=== PATIENT | male | born 1985 | race African-American/Black ===

== ENCOUNTER 2020-10-16 02:36 | Emergency (ER) | payer SELFPAY ==
[~2020-10-16] VITALS: Ht 177.8 cm; Wt 98.0 kg
[2020-10-16] MEDS ORDERED: MORPHINE SULFATE 4 MG/ML, 1ML ONE (02:39)
[2020-10-16 02:54] LABS: BASOPHILS % (AUTO) 1 % (0-1); EOSINOPHILS % (AUTO) 0 % (1-7); LYMPHOCYTES % (AUTO) 34 % (22-44); MEAN CORPUSCULAR HEMOGLOBIN 31.3 pg (27.5-34.5); MEAN CORPUSCULAR HGB CONC 33.1 g/dL (33.2-36.2); MEAN PLATELET VOLUME 7.7 fL (7.4-10.4); MONOCYTES % (AUTO) 6 % (2-9); NEUTROPHILS % (AUTO) 58 % (42-75); PLATELET COUNT 300 x10^3/uL (130-400); RED BLOOD COUNT 5.67 x10^6/uL (4.38-5.82); RED CELL DISTRIBUTION WIDTH 13.8 % (9.4-14.8)
[2020-10-16] MEDS ORDERED: PLEASE ENTER ALLERGIES MC SCH (03:00)
[2020-10-16] MEDS ORDERED: SODIUM CHLORIDE 0.9% 1,000ML IVBOLUS ONE (03:00)
[2020-10-16] MEDS ORDERED: DIPH,PERTUSS(ACELL),TET VAC/PF 0.5 ML IM-VACC ONE ×2 (03:00→05:16)
[2020-10-16] MEDS ORDERED: MORPHINE SULFATE 4 MG/ML, 1ML IVPush PRN (03:00)
[2020-10-16] MEDS ORDERED: LIDOCAINE-MPF 1%, 5ML INFIL ONE (03:00)
[2020-10-16] MEDS ORDERED: SODIUM CHLORIDE FLUSH 10ML SYR IVF ONE (03:00)
[2020-10-16] MEDS ORDERED: CEFAZOLIN PMX 1GM/50ML 50 ML IVPB ONE (03:00)
[2020-10-16] MEDS ORDERED: ONDANSETRON 2MG/ML, 2ML IVPush ONE (03:00)
[2020-10-16 03:04] LABS: ALBUMIN 4.5 g/dL (3.4-5.0); ANION GAP 15 mmol/L (5-15); CALCIUM 9.1 mg/dL (8.5-10.1); CHLORIDE 108 mmol/L (98-107); CREATININE 1.64 mg/dL (0.7-1.3)
[2020-10-16] MEDS ORDERED: OMNIPAQUE 350 MG/ML, 100ML BOTTLE ONE (03:06)
[2020-10-16] MEDS ORDERED: LIDOCAINE 1%-EPI 1:100K, 20ML ONE (03:26)
[2020-10-16] MEDS ORDERED: NEOSPORIN OINT. PKT 1 PACKET ONE ×2 (03:39→04:37)
[2020-10-16] MEDS ORDERED: HYDROcodone/APAP 5/325 TABLET PO ONE (05:00)
[2020-10-16 05:03] VITALS: BP 130/80
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
[2020-10-16] MEDS ORDERED: HYDROcodone/APAP 5/325 TABLET ONE (05:16)
[2020-10-16] MEDS ORDERED: CEFAZOLIN PMX 1GM/50ML 50 ML ONE (05:16)
== END 2020-10-16 05:44 | disposition home or self-care (01) ==
LOC: ED 03:00
DX: S21.142A Puncture wound with foreign body of left front wall of thorax without penetration into thoracic cavity, initial encounter (principal); S20.212A Contusion of left front wall of thorax, initial encounter; S60.511A Abrasion of right hand, initial encounter; X94.0XXA Assault by shotgun, initial encounter; Y93.89 Activity, other specified; Y92.89 Other specified places as the place of occurrence of the external cause; Y99.8 Other external cause status
CPT/HCPCS: 10120; 36415; 71045; 71260; 73130; 74177; 80048; 80320; 82040; 85025; 86850; 86900; 90471; 90715; 96365; 96375; 99291; J0690; J2270; J7030; Q9967; G0480